=== PATIENT | male | born 1980 | race Caucasian/White ===

== ENCOUNTER 2017-11-20 08:57 | Emergency (ER) | payer MEDICAID ==
[~2017-11-20] VITALS: Ht 180.3 cm; Wt 85.0 kg
[2017-11-20 09:03] VITALS: BP 144/90
[2017-11-20] MEDS ORDERED: LORazepam 1MG TABLET ONE (09:15)
[2017-11-20 09:20] LABS: BASOPHILS # (AUTO) 0.04 x10^3/uL (0-0.1); BASOPHILS % (AUTO) 1 % (0-1); EOSINOPHILS # (AUTO) 0.24 x10^3/uL (0-0.4); EOSINOPHILS % (AUTO) 4 % (1-7); LYMPHOCYTES # (AUTO) 1.46 x10^3/uL (1-3.4); LYMPHOCYTES % (AUTO) 23 % (22-44); MD NO; MEAN CORPUSCULAR HGB CONC 34.1 g/dL (33.2-36.2); MEAN CORPUSCULAR VOLUME 90.8 fL (81-97); MEAN PLATELET VOLUME 7.3 fL (7.4-10.4); MONOCYTES # (AUTO) 0.95 x10^3/uL (0.2-0.8); MONOCYTES % (AUTO) 15 % (2-9); NEUTROPHILS # (AUTO) 3.79 x10^3/uL (1.8-6.8); NEUTROPHILS % (AUTO) 59 % (42-75); PLATELET COUNT 267 x10^3/uL (130-400); RED BLOOD COUNT 5.24 x10^6/uL (4.38-5.82); RED CELL DISTRIBUTION WIDTH 12.4 % (9.4-14.8)
[2017-11-20] MEDS ORDERED: LORazepam 1MG TABLET PO ONE (09:30)
[2017-11-20] MEDS ORDERED: THIAMINE 100MG TABLET PO ONE (09:30)
[2017-11-20] MEDS ORDERED: PLEASE ENTER ALLERGIES MC SCH (09:30)
[2017-11-20 09:33] LABS: ALBUMIN 3.7 g/dL (3.4-5.0); ANION GAP 7 mmol/L (5-15); CALCIUM 8.7 mg/dL (8.5-10.1); CHLORIDE 102 mmol/L (98-107); CREATININE 0.75 mg/dL (0.7-1.3)
[2017-11-20] MEDS ORDERED: PROMETHAZINE 25 MG/ML, 1ML ONE (10:41)
[2017-11-20] MEDS ORDERED: THIAMINE 100MG TABLET ONE (10:51)
[2017-11-20] MEDS ORDERED: PROMETHAZINE 25 MG/ML, 1ML IM ONE (11:00)
== END 2017-11-20 11:06 | disposition home or self-care (01) ==
LOC: ED 11:00
DX: F10.220 Alcohol dependence with intoxication, uncomplicated (principal)
CPT/HCPCS: 36415; 80048; 82040; 85025; 96372; 99284; J2550

== ENCOUNTER 2017-11-25 06:05 | Emergency (ER) | payer MEDICAID ==
[~2017-11-25] VITALS: Ht 175.3 cm; Wt 84.5 kg
[2017-11-25] MEDS ORDERED: ONDANSETRON 2MG/ML, 2ML ONE (06:48)
[2017-11-25] MEDS ORDERED: LORazepam 2 MG/ML, 1ML ONE (06:48)
[2017-11-25] MEDS ORDERED: CHLORDIAZEPOXIDE 25 MG CAPSULE PO ONE (07:00)
[2017-11-25] MEDS ORDERED: SODIUM CHLORIDE FLUSH 10ML SYR IVF ONE (07:00)
[2017-11-25] MEDS ORDERED: LORazepam 2 MG/ML, 1ML IVPush ONE (07:00)
[2017-11-25] MEDS ORDERED: ONDANSETRON 2MG/ML, 2ML IVPush ONE (07:00)
[2017-11-25] MEDS ORDERED: SODIUM CHLORIDE 0.9% 1,000ML IVBOLUS ONE (07:00)
[2017-11-25] MEDS ORDERED: CHLORDIAZEPOXIDE 25 MG CAPSULE ONE (07:04)
[2017-11-25 07:21] LABS: ANION GAP 6 mmol/L (5-15); CALCIUM 9.3 mg/dL (8.5-10.1); CHLORIDE 105 mmol/L (98-107); CREATININE 0.86 mg/dL (0.7-1.3)
[2017-11-25 07:22] LABS: ALBUMIN 3.9 g/dL (3.4-5.0)
[2017-11-25 07:23] LABS: BASOPHILS # (AUTO) 0.12 x10^3/uL (0-0.1); BASOPHILS % (AUTO) 2 % (0-1); EOSINOPHILS # (AUTO) 0.17 x10^3/uL (0-0.4); EOSINOPHILS % (AUTO) 3 % (1-7); LYMPHOCYTES # (AUTO) 1.92 x10^3/uL (1-3.4); LYMPHOCYTES % (AUTO) 29 % (22-44); MD NO; MEAN CORPUSCULAR HEMOGLOBIN 31.2 pg (27.5-34.5); MEAN CORPUSCULAR HGB CONC 33.9 g/dL (33.2-36.2); MEAN CORPUSCULAR VOLUME 92.1 fL (81-97); MEAN PLATELET VOLUME 7.4 fL (7.4-10.4); MONOCYTES # (AUTO) 0.77 x10^3/uL (0.2-0.8); MONOCYTES % (AUTO) 12 % (2-9); NEUTROPHILS # (AUTO) 3.57 x10^3/uL (1.8-6.8); NEUTROPHILS % (AUTO) 55 % (42-75); PLATELET COUNT 302 x10^3/uL (130-400); RED BLOOD COUNT 5.43 x10^6/uL (4.38-5.82); RED CELL DISTRIBUTION WIDTH 13.3 % (9.4-14.8)
[2017-11-25 07:25] LABS: TROPONIN I < 0.015 ng/mL (0.000-0.045)
[2017-11-25 08:01] VITALS: BP 116/76
== END 2017-11-25 08:04 | disposition home or self-care (01) ==
LOC: ED 07:55
DX: F10.10 Alcohol abuse, uncomplicated (principal); Z86.19 Personal history of other infectious and parasitic diseases
CPT/HCPCS: 36415; 71046; 80048; 82040; 84484; 85025; 93005; 96361; 96374; 96375; 99285; J2060; J2405; J7030